=== PATIENT | male | born 1940 | race Caucasian/White ===

== ENCOUNTER 2017-03-09 09:38 | Emergency (ER) | payer OTHER ==
[~2017-03-09 09:38] MED LIST: ALEVE PM CAPLE1 EACH PO; ASPIRIN EC81 MG PO; FISH OIL 1,0001 EAC5 PO; GINSENG100 MG PO; HYDROCHLOROTHIA25 MG PO; LEVAQUIN500 MG PO; MELATONIN10 M3 PO; NORCO 5-325 TA1 EACH PO; OMEGA 3 1,0001 EACH PO; PROBIOTIC1 EAC1 PO; PROTONIX40 MG PO; VITAMIN C 500500 MG PO; VITAMIN D31000 UNIT PO; VITAMIN E400 UNIT PO
[2017-03-09 10:20] LABS: HEMOGLOBIN 14.4 gm/dl (14.0-17.5); RED BLOOD COUNT 4.67 M/UL (4.20-5.50)
[2017-03-09 10:56] LABS: BUN/CREATININE RATIO 40 (0-10)
== END 2017-03-09 13:10 | disposition home or self-care (01) ==
LOC: ER1 09:38
PROVIDERS: Emergency Medicine
DX: S13.9XXA Sprain of joints and ligaments of unspecified parts of neck, initial encounter (principal); X58.XXXA Exposure to other specified factors, initial encounter; Z85.46 Personal history of malignant neoplasm of prostate; Z95.0 Presence of cardiac pacemaker
CPT/HCPCS: 36415; 70450; 72125; 80048; 84484; 85025; 96374; 96375; 99284; J2270; J2405

== ENCOUNTER → 2017-03-19 | Outpatient (CLI) | payer OTHER | LOC: CT 03-18 09:30 → KOH-I 10:00 | DX: C61 Malignant neoplasm of prostate (principal); C79.51 Secondary malignant neoplasm of bone; R59.0 Localized enlarged lymph nodes | CPT/HCPCS: 71260; 74177; Q9962 ==

== ENCOUNTER → 2021-01-21 | Outpatient (CLI) | payer MEDICARE ==
[~2021-01-21] MED LIST changes: +AMLODIPINE BESYL5 MG PO; +COZAAR 50MG TAB50 MG PO; +DEPAKOTE125 MG PO; +DOCUSATE SODIU100 MG PO; +DURAGESIC1 EAC3 TD; +ELIQUIS5 MG PO; +FLECAINIDE ACET50 MG PO; +GARLIC OIL1000 MG PO; +LACTULOSE10 GM/15 M PO; +LEVOFLOXACIN500 MG PO; +LORAZEPAM2 MG/1 ML INJ; +MEGACE TAB 40 M40 MG PO; +MEN'S MULTIVI200 MCG PO; +MIRALAX17 GM PO; +NEURONTIN 100100 MG PO; +OXYCODONE-ACETAMINOP PO; +SUPER B-50 COM1 EACH PO; +TOPROL XL100 MG PO; +ULTRAM50 MG PO; +[UNRECOGNIZED DRUG - OTHER] PO
== END ==
LOC: NM 08:01
DX: C61 Malignant neoplasm of prostate (principal); C79.51 Secondary malignant neoplasm of bone; Z79.899 Other long term (current) drug therapy
CPT/HCPCS: 78306; A9503

== ENCOUNTER → 2021-01-23 | Outpatient (CLI) | payer MEDICARE | LOC: CT 10:29 | DX: C61 Malignant neoplasm of prostate (principal); C79.51 Secondary malignant neoplasm of bone; J90 Pleural effusion, not elsewhere classified; Z79.899 Other long term (current) drug therapy | CPT/HCPCS: 71260; Q9967 ==

== ENCOUNTER → 2021-02-21 | Outpatient (CLI) | payer OTHER, MEDICARE | LOC: CATH 10:22 | DX: Z45.018 Encounter for adjustment and management of other part of cardiac pacemaker (principal) | CPT/HCPCS: 33213; 99152; 99153; C1785; J2250; J3010; J3370; J7040; J7050 ==

== ENCOUNTER → 2021-02-24 19:20 | Emergency (ER) | payer OTHER, MEDICARE | END | disposition E | LOC: ER1 19:20 | DX: I46.9 Cardiac arrest, cause unspecified (principal); F03.90 Unspecified dementia, unspecified severity, without behavioral disturbance, psychotic disturbance, mood disturbance, and anxiety | CPT/HCPCS: 92950; 99283; J0461 ==